=== PATIENT | female | born 1965 | race Asian ===

== ENCOUNTER → 2025-05-31 | Day surgery (SDC) | payer OTHER ==
[2025-05-24 15:20] LABS: BASOPHILS % 0.8 % (0.0-1.0); EOSINOPHILS % 11.4 % (0.0-6.0); LYMPHOCYTES % 32.8 % (18.0-39.1); MONOCYTES % 5.9 % (4.4-11.3); NEUTROPHILS % 48.3 % (38.7-80.0); RED CELL DISTRIBUTION WIDTH 12.6 % (11.7-14.4)
[2025-05-24 15:43] LABS: EST GLOMERULAR FILTRATION RATE 44.0 ML/MIN (>=60)
[~2025-05-31] MED LIST: ACETAMINOPHEN 1000 MG/100 ML 100 ML IV ONE; ARICEPT10 MG PO; ASPIRIN 325 MG TAB PO SCH; ASPIRIN81 MG PO; BREO ELLIPTA 11 EACH INH; CEFAZOLIN SODIUM 2 GM ONE; CELECOXIB 100 MG CAP PO SCH; DEXAMETHASONE SOD PHOS INJ 4 MG/ML SDV ONE; DOCUSATE SODIUM 100 MG CAP PO PRN; EPHEDRINE SULFATE INJ 50 MG/ML VIAL ONE; FISH OIL 1,0001 EAC7; FLUMAZENIL 0.5MG/ 5ML VIAL ONE; HYDROCODONE/APAP 7.5MG-325MG 1 EA TAB PO PRN; HYDROMORPHONE 2MG/ML ONE; JANUVIA100 MG PO; JARDIANCE25 MG PO; LACTATED RINGER'S 1,000 ML ONE; LEVOTHYROXINE50 MCG PO; LISINOPRIL5 MG PO; MEMANTINE HCL10 MG PO; METFORMIN HCL500 MG PO; NEURONTIN100 MG PO; ONDANSETRON HCL INJ 2MG/ML 2ML 2 MG/ML VIAL IV PRN; OZEMPIC0.25 MG/02; PANTOPRAZOLE SO40 MG PO; PAROXETINE HCL20 MG PO; PROPOFOL IV EMULSION 10 MG/ML 20 ML VIAL ONE; ROPIVACAINE/EPI/CLONIDINE/KET 50 ML SYRINGE INJ ONE; ROSUVASTATIN CA20 MG PO; SEROQUEL100 MG PO; SEVOFLURANE INHAL SOLN 250 ML PEN BTL ONE; VITAMIN D31 ML; ZETIA10 MG PO
[2025-05-31 10:40] VITALS: TEMP 97.6
[2025-05-31 14:15] VITALS: BP 136/79; PULSE 57; RESP 18; O2SAT 98
== END | disposition home or self-care (01) ==
LOC: OR 06:12
PROVIDERS: ATTEND Orthopaedic Surgery Adult Reconstructive Orthopaedic Surgery
DX: M17.11 Unilateral primary osteoarthritis, right knee (principal); E11.9 Type 2 diabetes mellitus without complications; I49.1 Atrial premature depolarization; I45.10 Unspecified right bundle-branch block; I10 Essential (primary) hypertension; E78.5 Hyperlipidemia, unspecified; E03.9 Hypothyroidism, unspecified; K21.9 Gastro-esophageal reflux disease without esophagitis; F41.9 Anxiety disorder, unspecified; F32.A Depression, unspecified; F03.90 Unspecified dementia, unspecified severity, without behavioral disturbance, psychotic disturbance, mood disturbance, and anxiety; Z01.810 Encounter for preprocedural cardiovascular examination; Z01.812 Encounter for preprocedural laboratory examination; Z79.82 Long term (current) use of aspirin; Z79.84 Long term (current) use of oral hypoglycemic drugs; Z79.85 Long-term (current) use of injectable non-insulin antidiabetic drugs
CPT/HCPCS: 27447; 36415 ×2; 73560; 80048; 82948; 85025; 86850; 86900; 93005; 97116; 97161; C1713; C1776 ×4; J0131; J1100; J1171; J2704; J7121